=== PATIENT | female | born 1935 | race Caucasian/White ===

== ENCOUNTER 2016-11-22 11:15 | Inpatient (IN) | payer MEDICARE ==
[~2016-11-22] VITALS: Ht 160 cm; Wt 87.3 kg
[2016-11-22 12:37] LABS: ALBUMIN 2.5 g/dL (3.4-5.0); ANION GAP 13.9 mmol/L (8-16); BILIRUBIN - TOTAL 0.39 mg/dL (0.2-1.3); CALCIUM 8.7 mg/dL (8.5-10.1); CARBON DIOXIDE 24.6 mmol/L (21.0-32.0); CREATININE - SERUM 1.7 mg/dL (0.6-1.3); POTASSIUM - SERUM 4.5 mmol/L (3.5-5.1); PROTEIN - SERUM 6.2 g/dL (6.4-8.2)
[2016-11-22 13:07] LABS: BASOPHILS 0.4 % (0.0-2.0); EOSINOPHILS 0.5 % (0-7); HEMATOCRIT 28.5 % (36.0-48.0); HEMOGLOBIN 8.3 g/dL (12-16); IMMATURE GRANULOCYTES 0.3 % (0-5); LYMPHOCYTES 10.1 % (15-50); MCH 26.5 pg (26.0-34.0); MCHC 29.1 g/dL (31.0-37.0); MCV 91.1 fL (80.0-100.0); MEAN PLATELET VOLUME 9.7 fL (7.4-10.4); MONOCYTES 5.7 % (2-11); PLATELET COUNT 173 10x3/uL (130-400); RBC 3.13 10x6/uL (4.00-5.40); WBC 7.4 10x3/uL (4.8-10.8)
[2016-11-22 13:31] LABS: TROPONIN-I 0.2 ng/mL (0.000-0.060)
[2016-11-22 17:12] LABS: APPEARANCE CLEAR (CLEAR); BILIRUBIN NEGATIVE (NEGATIVE); COLOR YELLOW (YELLOW); GLUCOSE NEGATIVE (NEGATIVE); KETONE NEGATIVE (NEGATIVE); LEUKOCYTE ESTERASE NEGATIVE (NEGATIVE); NITRITE NEGATIVE (NEGATIVE); PROTEIN TRACE mg/dL (NEGATIVE); SPECIFIC GRAVITY 1.015 (1.005-1.020); UROBILINOGEN NORMAL (NORMAL)
[2016-11-22 19:24] LABS: CKMB 2.8 U/L (0.0-3.6); CREATINE KINASE 63 UL (21-215)
[2016-11-22 19:27] LABS: TROPONIN-I 0.218 ng/mL (0.000-0.060)
[2016-11-22 19:38] LABS: % SATURATION 5 % (15-55); IRON 27 ug/dl (35-150)
[2016-11-22 19:40] LABS: TOTAL IRON BIND CAPACITY 478 ug/dl (260-445); UNSAT IRON BIND CAPACITY 451 ug/dl (150-375)
[2016-11-23] VITALS (10 sets, daily range): BP systolic 95–130; BP diastolic 44–95; Ht 160 cm; Wt 87.3 kg
[2016-11-23 00:33] LABS: CKMB 2.3 U/L (0.0-3.6); CREATINE KINASE 109 UL (21-215)
[2016-11-23 00:35] LABS: TROPONIN-I 0.203 ng/mL (0.000-0.060)
[2016-11-23 05:43] LABS: BASOPHILS 0.1 % (0.0-2.0); EOSINOPHILS 0 % (0-7); HEMATOCRIT 25.9 % (36.0-48.0); IMMATURE GRANULOCYTES 0.2 % (0-5); LYMPHOCYTES 8.4 % (15-50); MCH 25.6 pg (26.0-34.0); MCHC 27.8 g/dL (31.0-37.0); MCV 92.2 fL (80.0-100.0); MEAN PLATELET VOLUME 10.3 fL (7.4-10.4); MONOCYTES 9.6 % (2-11); NEUTROPHILS 81.7 % (40-80); PLATELET COUNT 166 10x3/uL (130-400); RBC 2.81 10x6/uL (4.00-5.40); WBC 8.1 10x3/uL (4.8-10.8)
[2016-11-23 06:03] LABS: HEMOGLOBIN 7.2 g/dL (12-16)
[2016-11-23 06:33] LABS: CALC OSMOLALITY 299 mosm/kg (275-300); CALCIUM 8.6 mg/dL (8.5-10.1); CARBON DIOXIDE 24.6 mmol/L (21.0-32.0); CHLORIDE - SERUM 108 mmol/L (98-107); CKMB 2.1 U/L (0.0-3.6); CREATINE KINASE 62 UL (21-215); CREATININE - SERUM 1.7 mg/dL (0.6-1.3); GLUCOSE 132 mg/dL (74-106); POTASSIUM - SERUM 4.6 mmol/L (3.5-5.1); SODIUM 143 mmol/L (136-145); UREA NITROGEN 49 mg/dL (7-18); eGFR NON AFRICAN AMERICAN 30 mL/min (90-120)
--- NOTE | 2016-11-23 09:11 | NUR ---
Left foot elevated on pillow with walker boot in place. Foot warm and dry. Antonia Fuentes RN
--- NOTE | 2016-11-23 15:19 | NUR ---
Patient Name: NETTIE MCCARTY Admission Status: ER Accout number: [id number] Admission Date: 11-22-2016 : 1933 Admission Diagnosis: Attending: KYE Current LOS: 1 Anticipated DC Date: 11-25-2016 Planned Disposition: Home Primary Insurance: MEDICARE A & B Discharge Planning Comments: CM MET WITH PATIENT AND DAUGHTER (ANNA) REGARDING D/C NEEDS AND PLANS. PATIENT COULD NOT ANSWER QUESTIONS-DAUGHTER ANSWERED ALL. DAUGHTER STATED SHE AND HER MOTHER LIVES TOGETHER AND THERE ARE NO STEPS OR STAIRS AT THE HOME. PATIENT IS PARTIALLY DEPENDENT FOR HER CARE. HER DAUGHTER GETS WATER READY FOR HER BATH AND HELPS WITH HER MEDICATION. PATIENT HAS A WALKER, HOSPITAL BED, BS COMMODE, OXYGEN, AND PORTABLE OXYGEN AT HOME. PATIENT HAS HOUSE CALLS. PATIENT PCP IS DR. SHELTON AND PHARMACY IS [facility] IN [place]. DAUGHTER DID NOT THINK HER MOTHER WILL NEED HOME HEALTH AT DISCHARGE. CM WILL CONTINUE TO FOLLOW PATIENT WITH D/C NEEDS AND PLANS. PCP DR[facility] IN [phone] ANNA (DAUGHTER) [phone] [employer]room[employer] Grader: Caroline Ware Is the patient Alert and Oriented? Yes 0 * How many steps to enter\exit or inside your home? 0 0 * PCP DR. SHELTON 0 * [facility] [place] 0 * Preadmission Environment Home with Family 0 * ADLs Independent 0 * Equipment Bedside Commode Hospital Bed Oxygen Walker 0 * List name and contact numbers for known caregivers / representatives who currently or will assist patient after discharge: ANNA (DAUGHTER) [phone] 0 * Community resources currently utilized Other 0 * Please name any agencies selected above. HOUSE CALLS 0 * Additional services required to return to the preadmission environment? Yes 0 * Can the patient safely return to the preadmission environment? Yes 0 * Has this patient been hospitalized within the prior 30 days at any hospital? No 0 Grand Total: 0
--- NOTE | 2016-11-23 18:30 | NUR ---
PRBC UNIT 1 INITIATED @ 125 CC/HR VIA PUMP. NO CHANGES IN INITIAL ASSESSMENT. CALL LIGHT IN REACH. WILL CONTINUE WITH PLAN OF CARE.
--- NOTE | 2016-11-23 20:10 | NUR ---
PATIENT RESTING IN BED. NO SIGNS OF DISTRESS NOTED. BLOOD INFUSING TO RIGHT WRIST IV. FAMILY PRESENT. BED LOW. CALL LIGHT IN REACH
--- NOTE | 2016-11-24 04:35 | NUR ---
PT IS ASLEEP IN BED WITH A FAMILY MEMBER ASLEEP IN THE CHAIR. THE BED IS LOW, RAILS UP X'S 2 WITH THE CALL LIGHT AT HAND. THE LIGHTS ARE DIM AND TV IS OFF.
[2016-11-24 06:11] LABS: BASOPHILS 0.2 % (0.0-2.0); EOSINOPHILS 0.6 % (0-7); IMMATURE GRANULOCYTES 0.6 % (0-5); LYMPHOCYTES 7.5 % (15-50); MCH 27.5 pg (26.0-34.0); MCHC 30.8 g/dL (31.0-37.0); MEAN PLATELET VOLUME 11.3 fL (7.4-10.4); MONOCYTES 10.5 % (2-11); NEUTROPHILS 80.6 % (40-80); RDW 16.1 % (11.5-14.5); WBC 8.7 10x3/uL (4.8-10.8)
[2016-11-24 06:15] LABS: HEMATOCRIT 31.8 % (36.0-48.0); HEMOGLOBIN 9.8 g/dL (12-16); MCV 89.1 fL (80.0-100.0); PLATELET COUNT 104 10x3/uL (130-400); RBC 3.57 10x6/uL (4.00-5.40)
--- NOTE | 2016-11-24 07:58 | NUR ---
ROUSES TO TACTILE STIMULATION. RESPONDS TO NAME BUT NOT ANSWERING QUESTIONS. LUNGS ARE CLEAR BILATERALLY, NO COUGH NOTED. SKIN IS INTACT WITHOUT REDNESS EXCEPT SMALL SCABBED AREA ON LEFT LOWER ABDOMEN THAT DAUGHTER REPORTS BURN FROM COFFEE. SL TO RIGHT WRIST AREA INTACT WITHOUT REDNESS. SCD'S IN PLACE TO RIGHT LEG. WALKING BOOT IN PLACE TO LEFT LE. RANJITS NEEDS.
[2016-11-24 08:04] VITALS: BP 109/69
[2016-11-24 08:07] LABS: CALCIUM 7.7 mg/dL (8.5-10.1); CARBON DIOXIDE 22.3 mmol/L (21.0-32.0)
[2016-11-24 08:08] LABS: ANION GAP 13.5 mmol/L (8-16); POTASSIUM - SERUM 4.8 mmol/L (3.5-5.1)
[2016-11-24 10:20] LABS: FOLATE (FOLIC ACID) - SERUM 15.2 ng/mL (>3.0)
[2016-11-24 11:43] VITALS: BP 105/64
[2016-11-24 16:56] VITALS: BP 105/76
--- NOTE | 2016-11-24 18:04 | NUR ---
SITTING UP IN BED ATE ALL OF SUPPER. FAMILY AT BEDSIDE. REQUESTED AND GIVEN 0.1MG BUPRENEX SLOW IVP FOR C/O LEFT FOOT PAIN LEVEL 7. WILL MONITOR.
--- NOTE | 2016-11-24 18:38 | NUR ---
ATE ALMOST ALL OF SUPPER. DISCHARGE INSTRUCTIONS GIVEN BOTH VERBALLY AND WRITTEN. ALL QUESTIONS ANSWERED. PATIENT VERBALIZED UNDERSTANDING OF SAME. NO NEW PRESCRIPTIONS NEEDED. WAITING ON RIDE TO D/C HOME.
[2016-11-24 20:00] VITALS: BP 110/71
--- NOTE | 2016-11-24 23:10 | NUR ---
DR. ARREDONDO NOTIFIED OF CHANGE IN PT STATUS, NEW ORDERS RECIEVED
[2016-11-24 23:15] VITALS: BP 131/68
--- NOTE | 2016-11-24 23:15 | NUR ---
CONSULT CALLED TO DR. KATZ, NEW ORDERS RECIEVED,
--- NOTE | 2016-11-24 23:20 | NUR ---
PT ARRIVED ON UNIT, PT AGONAL BREATHING AT THIS TIME, DR. BALL NOTIFIED OF NEED OF INTUBATION, ETOMIDATE, VERSED, AND SUCCS ORDERED AT THIS TIME, PT INTUBATED @ 2330 WITH @ 7.5 ETT, 21 AT LIP, TAPED AND SECURE, 18FR TORRES CATHETER PLACED AT THIS TIME, 22G RIGHT SHOULDER PIV INTIATED AT THIS TIME, WAITING ON FAMILY TO ARRIVE
[2016-11-24 23:45] VITALS: BP 101/86
[2016-11-25] VITALS (52 sets, daily range): BP systolic 83–135; BP diastolic 40–103
--- NOTE | 2016-11-25 | NUR ---
PT REC'D ON VENT VIA 7.5 ETT TAPED @ 20CM LIPLINE, OGT SECURED TO ETT, PLACEMENT VERIFIED VIA SM AIR BOLUS AUSCULTATED OVER EPIGASTRIM, GOLD COLORED DRAINAGE FROM OGT, SEE FLOWSHEET FOR VENT SETTINGS, CM- SR WITH PAC'S HR 90, PT UNRESPONSIVE AT THIS TIME, RIGHT FOREARM PIV SALINE LOCKED, RIGHT UPPER ARM WITH WEEPING NOTED AND REDDENED AREA, RIGHT UPPER CHEST 22 GAUGE SALINE LOCKED, ABD WITH HERNIA NOTED, BS HYPOACTIVE, TORRES PATENT DRAINING DARK YELLOW URINE, BOOT NOTED TO LEFT LE, BILAT LE'S WITH DRY SKIN NOTED, BILAT SOFT WRIST RESTRAINTS INTACT.
--- NOTE | 2016-11-25 00:30 | NUR ---
FAMILY AT BS, UPDATE GIVEN AND QUESTIONS ANSWERED BY STEPH GARDNER.
--- NOTE | 2016-11-25 01:30 | NUR ---
PT STARTING TO MOVE AROUND IN BED, DOES NOT OPEN EYES TO VERBAL STIMULI, SQUEEZES HANDS AND MOVES RIGHT FOOT TO COMMAND, FAMILY INFORMED STAFF THAT PT IS VERY HARD OF HEARING.
--- NOTE | 2016-11-25 02:00 | NUR ---
PT COUGHING/GAGGING ON ETT, ORAL CARE GIVEN, THICK WHITE SECRETIONS REMOVED FROM MOUTH, PT REACHING FOR ETT DESPITE RESTRAINTS, ATTEMPTED TO CALM PT AT THIS TIME.
--- NOTE | 2016-11-25 02:16 | NUR ---
DIPRIVAN BEGUN TO RIGHT FOREARM, BP ELEVATED AND PT CONTINUES TO MOVE AROUND BED, COUGHING AND GAGGING ON ETT, WILL MONITOR CLOSELY FOR CHANGES.
--- NOTE | 2016-11-25 03:30 | NUR ---
RADIOLOGY AT BEDSIDE FOR AM CXR
--- NOTE | 2016-11-25 04:00 | NUR ---
COMPLETE BATH AND LINEN CHANGE PROVIDED, TOLERATED WELL, REMAINS SEDATED ON DIPRIVAN, WILL CONT TO MONITOR FOR CHANGES.
--- NOTE | 2016-11-25 06:15 | NUR ---
AM MEDS GIVEN, NO VISITORS IN AT THIS TIME.
[2016-11-25 07:01] LABS: BASOPHILS 0.4 % (0.0-2.0); EOSINOPHILS 0.1 % (0-7); HEMATOCRIT 29.8 % (36.0-48.0); HEMOGLOBIN 9.3 g/dL (12-16); IMMATURE GRANULOCYTES 1.4 % (0-5); LYMPHOCYTES 7.2 % (15-50); MCH 27.3 pg (26.0-34.0); MCHC 31.2 g/dL (31.0-37.0); MCV 87.4 fL (80.0-100.0); MEAN PLATELET VOLUME 10.7 fL (7.4-10.4); MONOCYTES 8.7 % (2-11); NEUTROPHILS 82.2 % (40-80); RBC 3.41 10x6/uL (4.00-5.40); WBC 9.8 10x3/uL (4.8-10.8)
[2016-11-25 07:02] LABS: PLATELET COUNT 130 10x3/uL (130-400)
[2016-11-25 07:29] LABS: CALCIUM 7.6 mg/dL (8.5-10.1); CARBON DIOXIDE 22.2 mmol/L (21.0-32.0); CREATININE - SERUM 2.3 mg/dL (0.6-1.3)
[2016-11-25 07:36] LABS: ANION GAP 15.7 mmol/L (8-16); POTASSIUM - SERUM 5.9 mmol/L (3.5-5.1)
--- NOTE | 2016-11-25 09:04 | NUR ---
Nutrition follow-up: Pt now in ICU; intubated, sedated. OGT->LIWS Labs reviewed If pt remains intubated, recommend starting Pulmocare @ 25 ml/hr with gradual increase to goal rate of 40 ml/hr. RDN following.
[2016-11-25 12:26] LABS: ANION GAP 16.3 mmol/L (8-16); CALCIUM 8.1 mg/dL (8.5-10.1); CARBON DIOXIDE 23.5 mmol/L (21.0-32.0); CREATININE - SERUM 2.4 mg/dL (0.6-1.3); POTASSIUM - SERUM 5.8 mmol/L (3.5-5.1)
--- NOTE | 2016-11-25 18:31 | NUR ---
SPOKE WITH ALL TEN OF PT'S LIVING CHILDREN ABOUT PLAN OF CARE. WILL DISCUSS OVERNIGHT AND SPEAK WITH IN AM.
--- NOTE | 2016-11-25 21:37 | NUR ---
FAMILY AT BEDSIDE, UPDATE GIVEN AND QUESTIONS ANSWERED.
--- NOTE | 2016-11-25 23:01 | NUR ---
REASSESSMENT COMPLETE, SEE FLOWSHEET FOR ALL FINDINGS. COMPLETE BATH AND LINEN CHANGE COMPLETE. PT REPOSITIONED WITH BONY PROMINENCES BRIDGED. VSS. ORAL CARE ADM. ROOM VISIBLE FROM NURSES STATION. CPOC.
[2016-11-26] VITALS (95 sets, daily range): BP systolic 80–132; BP diastolic 42–82
--- NOTE | 2016-11-26 03:00 | NUR ---
REASSESSMENT COMPLETE, SEE FLOWSHEET FOR ALL FINDINGS. PT REPOSITIONED WITH BONY PROMINENCES BRIDGED. ORAL CARE ADM. DOPAMINE GTT REMAINS INFUSING. CPOC.
--- NOTE | 2016-11-26 05:13 | NUR ---
PT REPOSITIONED WITH BONY PROMINENCES BRIDGED. ORAL CARE ADM. PARTIAL LINEN CHANGE COMPLETE. VSS, DOPAMINE GTT INFUSING. CPOC.
[2016-11-26 08:31] LABS: ANION GAP 16.4 mmol/L (8-16); CALCIUM 7.6 mg/dL (8.5-10.1); CARBON DIOXIDE 23.3 mmol/L (21.0-32.0); CREATININE - SERUM 2.1 mg/dL (0.6-1.3)
[2016-11-26 08:32] LABS: BASOPHILS 0.1 % (0.0-2.0); EOSINOPHILS 0.2 % (0-7); HEMATOCRIT 34.4 % (36.0-48.0); HEMOGLOBIN 10.7 g/dL (12-16); IMMATURE GRANULOCYTES 0.3 % (0-5); LYMPHOCYTES 5.2 % (15-50); MCH 27.3 pg (26.0-34.0); MCHC 31.1 g/dL (31.0-37.0); MCV 87.8 fL (80.0-100.0); MEAN PLATELET VOLUME 9.8 fL (7.4-10.4); MONOCYTES 5.6 % (2-11); NEUTROPHILS 88.6 % (40-80); PLATELET COUNT 150 10x3/uL (130-400); RBC 3.92 10x6/uL (4.00-5.40); RDW 16.6 % (11.5-14.5); WBC 10.2 10x3/uL (4.8-10.8)
[2016-11-26 08:32] LABS: POTASSIUM - SERUM 3.7 mmol/L (3.5-5.1)
--- NOTE | 2016-11-26 14:55 | NUR ---
BED BATH AND LINEN CHANGE COMPLETE. HAIR WASHED. ORAL CARE PROVIDED.
--- NOTE | 2016-11-26 19:00 | NUR ---
PT SEDATED, OPENS EYES FOLLOWS SOME SIMPLE COMMANDS. INTUBATED, SPO2 95 @ 30% FIO2. LUNG SOUNDS CRACKLES/DIMINISHED. ORAL CARE ADM. PERIPHERAL PULSES WEAK. DOPAMINE GTT INFUSING FOR HYPOTENSION. PT REPOSITIONED WITH BONY PROMINENCES BRIDGED. BOWEL SOUNDS ACTIVE IN ALL QUADRANTS. NO S/S OF PAIN OR ACUTE DISTRESS. BILATERAL WRIST RESTRAINTS IN PLACE. ROOM VISIBLE FROM NURSES STATION. CPOC.
--- NOTE | 2016-11-26 21:10 | NUR ---
FAMILY AT BEDSIDE, QUESTIONS ANSWERED AND UPDATE GIVEN. VSS, NO S/S OF PAIN OR ACUTE DISTRESS NOTED. PT REPOSITIONED. ROOM VISIBLE FROM NURSES STATION. CPOC.
--- NOTE | 2016-11-26 23:00 | NUR ---
REASSESSMENT COMPLETE, SEE FLOWSHEET FOR ALL FINDINGS. NO ACUTE CHANGES NOTED AT THIS TIME. PT REPOSITIONED WITH BONY PROMINENCES BRIDGED. ORAL CARE ADM. NO S/S OF PAIN. PARTIAL LINEN CHANGE COMPLETE. ROOM VISIBLE FROM NURSES STATION. CPOC.
[2016-11-27] VITALS (89 sets, daily range): BP systolic 74–132; BP diastolic 42–111
--- NOTE | 2016-11-27 03:10 | NUR ---
REASSESSMENT COMPLETE, SEE FLOWSHEET FOR ALL FINDINGS. NO ACUTE CHANGES NOTED AT THIS TIME. PT REPOSITIONED WITH BONY PROMINENCES BRIDGED. ORAL CARE ADM. NO S/S OF PAIN. BILATERAL WRIST RESTRAINTS IN USE. ROOM VISIBLE FROM NURSES STATION. CPOC.
[2016-11-27 05:16] LABS: BASOPHILS 0.1 % (0.0-2.0); EOSINOPHILS 1.1 % (0-7); HEMATOCRIT 32.7 % (36.0-48.0); HEMOGLOBIN 10.1 g/dL (12-16); IMMATURE GRANULOCYTES 0.1 % (0-5); MCH 27.2 pg (26.0-34.0); MCHC 30.9 g/dL (31.0-37.0); MCV 88.1 fL (80.0-100.0); MONOCYTES 6.9 % (2-11); NEUTROPHILS 84.8 % (40-80); PLATELET COUNT 157 10x3/uL (130-400); RBC 3.71 10x6/uL (4.00-5.40); RDW 16.7 % (11.5-14.5); WBC 9.5 10x3/uL (4.8-10.8)
[2016-11-27 05:51] LABS: ANION GAP 14.6 mmol/L (8-16); CALCIUM 7.4 mg/dL (8.5-10.1); CARBON DIOXIDE 23.2 mmol/L (21.0-32.0); CREATININE - SERUM 2.1 mg/dL (0.6-1.3)
[2016-11-27 05:54] LABS: POTASSIUM - SERUM 2.8 mmol/L (3.5-5.1)
--- NOTE | 2016-11-27 06:13 | NUR ---
REC'D CALLBACK FROM [facility] REGARDING CRITICAL LAB RESULTS, NEW ORDERS REC'D.
--- NOTE | 2016-11-27 08:00 | NUR ---
SPOKE WITH DR. LOU ABOUT REMOVING LEFT FOOT BOOT. STATES IT IS OK TO UNSTRAP BOOT TO ASSESS FOOT BUT TO NOT REMOVE BOOT FROM FOOT ENTIRELY.
--- NOTE | 2016-11-27 14:00 | NUR ---
EXTUBATED TO 2L NC PER ORDER BY R.T.
--- NOTE | 2016-11-27 19:30 | NUR ---
REC'D PT SITTING UP IN BED O2 @ 2LITERS VIA NC, PT VERY HARD OF HEARING, SPEECH GARBLED, PT APPEARS TO BE ABLE TO READ LIPS AND CAN READ NOTES WRITTEN TO HER, RIGHT UPPER CHEST PIV WITH NS @ 50CC/HR AND DOPAMINE @ 8MCG/KG/MIN, RIGHT FOREARM PIV SALINE LOCKED, RIGHT A/C WITH REDDENED AREA, SCAB/SORES NOTED, CM-UCAF @ 105, ABD ROUND SOFT, BS X 4, TORRES PATENT DRAINING JASPAL COLORED URINE, LEFT LOWER EXT ANKLE FRACTURE IN BOOT, SKIN ASSESSED, CDI, BOOT REMAINED ON DURING ASSESSMENT, SCD TO RIGHT LEG AND ON, LEFT LOWER EXT ELEVATED ON PILLOW, SR UP X 2, VISIBLE TO NURSES STATION.
--- NOTE | 2016-11-27 21:15 | NUR ---
FAMILY AT BS FOR VISITING, PT MOTIONING TO LEFT LEG , SAYS PILLOW, PILLOW ADJUSTED AND PLACED UNDER LEFT LEG, STATES "BETTER", UPDATE PROVIDED TO FAMILY, FAMILY WETTING SWABS AND MOISTENING PT'S MOUTH, PO MEDS HELD UNTIL SWALLOW EVAL COMPLETED TO ASSESS PT'S ABILITY TO SWALLOW.
--- NOTE | 2016-11-27 23:05 | NUR ---
REASSESSMENT COMPLETED, PT DIFFICULT TO COMMUNICATE DUE TO HARD OF HEARING, PT REPOSITIONED UP IN BED AND ONTO LEFT SIDE SUPPORTED WITH PILLOW, PILLOWS UNDER LEFT ARM AND LEFT LEG FOR COMFORT, PT ASKING ABOUT GLASSES, EXPLAINED TO PT FAMILY HAD GLASSES, WILL MONITOR FOR CHANGES.
[2016-11-28] VITALS (94 sets, daily range): BP systolic 57–125; BP diastolic 26–98
--- NOTE | 2016-11-28 00:20 | NUR ---
ROUTINE MEDS GIVEN, ATTEMPTED A FEW ICE CHIPS WITH PT, TOLERATED WELL, WILL CONT WITH ORAL SWABS MORE THAN ICE UNITL SWALLOW EVAL COMPLETED.
--- NOTE | 2016-11-28 02:00 | NUR ---
PT RESTING EYES CLOSED, RESP EVEN AND UNLABORED, DOPAMINE CONTINUES @ 7.5MCG/KG/MIN, WILL CONT TO MONITOR FOR CHANGES.
--- NOTE | 2016-11-28 03:45 | NUR ---
RADIOLOGY @ BS FOR AM CXR, PT POSITIONED FOR COMFORT
--- NOTE | 2016-11-28 05:30 | NUR ---
ORAL CARE PROVIDED WITH MOISTENED SWABS, PT REPOSITIONED UP IN BED.
--- NOTE | 2016-11-28 06:20 | NUR ---
RIGHT FOREARM PIV WITH DOPAMINE INFUSING LEAKING AT SITE, DOPAMINE MOVED TO RIGHT UPPER CHEST, STEEL SASH ERECTOR AND PHARMACY NOTIFIED.
--- NOTE | 2016-11-28 07:00 | NUR ---
PHENTOLAMINE 10MG GIVEN SUBCUE TO RIGHT WRIST AND FOREARM, PT TOLERATED WELL.
[2016-11-28 09:55] LABS: ANION GAP 11.7 mmol/L (8-16); CALCIUM 7.5 mg/dL (8.5-10.1); CARBON DIOXIDE 25.3 mmol/L (21.0-32.0); CREATININE - SERUM 2.2 mg/dL (0.6-1.3)
--- NOTE | 2016-11-28 10:19 | NUR ---
Nutrition follow-up: Pt extubated. Diet advanced to puree with thin liquids Wt: 168# RDN will order butter pecan Nepro BID. RDN following.
--- NOTE | 2016-11-28 14:16 | EC ---
PATIENT:NETTIE MCCARTY DATE OF SERVICE: 11/22/16 SEX: F MEDICAL RECORD: [id number] DATE OF : 31 LOCATION:[facility] D230 AGE OF PATIENT: 81 ADMISSION DATE: 11/22/16 REFERRING PHYSICIAN: INTERPRETING PHYSICIAN: BARB PERSON MD ECHOCARDIOGRAM REPORT ECHO CHARGES 4 ECHO COMPLETE CLINICAL DIAGNOSIS: DYSPNEA ECHOCARDIOGRAPHIC MEASUREMENTS (adult normal given) AC root (d.<3.7cm) 3.0 LV Septum d (<1.2 cm> 1.2 Valve Excursion 1.6 LV Septum (systole) 1.7 Left Atria (s.<4.0cm> 5.3 LVPW d(<1.2cm) 1.3 RV (d.<2.3cm) 4.3 LVPW (sytole) 1.9 LV diastole(<5.6CM) 4.5 MV E-F(>70mm/sec) LV systole 2.6 LVOT Diameter 1.8 MV exc.(>10mm) Est.ejection fraction (50-75%) Pericardial Effusion N DOPPLER: LVIT A E 120.0 LA RVSP 65.0 LVOT 97.0 AOP1/2T Asc. Ao 187 RVOT 53.0 RA PA 96.0 AV Gradient Peak 14.0 AV Mean 6.6 AV Area 1.4 MV Gradient Peak 12.0 MV Mean 2.3 MV Area COMMENTS: Sales Promotion Director: Blanca TAVARESOE Sales Associate Fishing:1 Dr. Person TAPE# PACS DATE OF SERVICE: 11/23/2016 Echocardiogram FINDINGS: 1. Left ventricular chamber size is within normal limits. Left ventricular systolic function is mildly reduced, overall ejection fraction estimated at 40%. 2. Left atrium, right atrium and right ventricular chamber sizes are moderately dilated. Left atrium measures 5.3 cm. 3. Valvular structures have normal structure and motion. ECHOCARDIOGRAM REPORT [id number] NETTIE MCCARTY 4. Doppler interrogation reveals moderate to severe mitral regurgitation, severe tricuspid regurgitation, no other valvular insufficiency or stenosis. Pulmonary systolic pressure is elevated and estimated at 65 mmHg. 5. No evidence of pericardial effusion or left ventricular thrombus. TRANSINT:[id number] Voice Confirmation ID: [id number] DOCUMENT ID: [id number] BARB PERSON MD at 1416 CC: [id number] DICTATION DATE: 11/23/16 1307 CLIENT FINANCE ANALYST: 11/23/16 1830 ADM IN [facility] [address] [id number]
--- NOTE | 2016-11-28 14:23 | NUR ---
0800 AM ASSESMENT IS COMPLETE SEE FLOW SHEET FOR FINDINGS.. PT IS AWAKE AND WITHOUT C/O AT THIS TIME.. REPORT RECIEVED AND NIGHT NURSE IS COMPLETEING INJECTION OF REGITINE INTO RIGHT HAND WHERE THE PIV HAS INFILTRATED WITH DOPAMINE DRIP.. HAND AND ARM IS RED WITH SWELLING.. PIV HAS BEEN RESITED INTO RIGHT SHOULDER AREA AND DOPAMINE IS INFUSING INTO THE SITE ALONG WITH NS.. 0820 DR KELLY IS IN TO SEE PT.. UPDATER IS GIVEN.. [place] 0830 WINNIE BRIONES RN IN TO SEE PT AND INSERT PICC LINE.. 0850 PICC PLACED IN UPPER LEFT ARM AND X RAY HERE TO VERIFY PLACEMENT.. 0900 FAMILY IN TO SEE PT.. UPDATE GIEN.. 0920 SHAHEED RAMIREZ IN TO DO SWALLOW EVEL PER ORDER.. 0945 SWALLOW EVEL COMPLETE AND FAMILY GONE FROM BEDSIDE. 1030 COMPLETE BATH AND LINEN CHAMNGE DONE AT THIS TIME.. PT C/O PAIN IN LEFT LOWER LEG AFTER TURNING .. CAST IN PLACE AND LEG SUPPORTED ON PILLOWS.. 1100 DR RIVERA IN TO SEE PT.. UPDATE GIVEN AND SKIN AREAS SHOWN TO HER 1200 PUREED DIET SERVED AND FAMILY AT THE BEDSIDE ASSISTING PT WITH MEAL.. 1300 FAMILY GONE FROM THE BEDSIDE ... 1330 MEDS GIVEN.. 1400 PT IS SLEEPING AT THIS TIME..
--- NOTE | 2016-11-28 18:18 | NUR ---
1500 FAMILY AT THE BEDSIDE.. 1600 MEDS GIVEN.. I AND O DONE.. 1700 SLEEPING 1800 FAMILY IN TO SEE PT.. FEEDING PT EVENING DIET TRAY..
--- NOTE | 2016-11-28 19:40 | NUR ---
REPORT REC'D AND CARE ASSUMED, REC'D PT ON O2 @ 2LITERS VIA NC, AWAKE AND ALERT, PT EXTREMELY HARD OF HEARING, COMMUNICATES BY READING LIPS, RIGHT UPPER CHEST PIV SALINE LOCKED, RIGHT EDEMATOUS, RIGHT HAND AND FOREARM WITH RED DISCOLORATION, RIGHT ARM WEEPING SEROSANGUINOUS FLUID, CM-CAF, LEFT UPPER ARM PICC LINE DRSG CDI WITH NS @ 50CC/HR AND DOPAMINE @ 7.5MCG/KG/MIN, THIRD LUMEN SALINE LOCKED, LEFT LOWER EXTREME IN BOOT, BOOT OPENED TO EXAMINE SKIN, SKIN CDI, ADJUSTED PILLOW UNDERNEATH BOOT FOR PT COMFORT, TORRES PATENT DRAINING JASPAL COLORED URINE, PT DENIES PAIN OR NEEDS, SR UP X 2, VISIBLE TO NURSES STATION.
--- NOTE | 2016-11-28 21:00 | NUR ---
FAMILY AT , UPDATE GIVEN AND QUESTIONS ANSWERED, PT REPOSITIONED ONTO RIGHT SIDE PER REQUEST, PT COMPLAINS OF "MY LEG IS IN A HOLE", PILLOW ADJUSTED UNDER FRACTURED LEG, PT STATES "THAT IS SOMEWHAT BETTER".
--- NOTE | 2016-11-28 21:45 | NUR ---
EVENING MEDS GIVEN, WITH SIPS OF WATER, PT TOLERATED WELL, PT REQUESTING ICE CREAM, PT UNABLE TO HOLD CUP OF ICE CREAM, ASSISTED PT WITH ICE CREAM, PT DOES NOT LIKE THE TASTE OF THE WATER, KRISTY COLA PROVIDED.
--- NOTE | 2016-11-28 23:30 | NUR ---
PT RESTING EYES CLOSED, RESP EVEN AND UNLABORED, CM-CAF, NO CHANGES FROM PREVIOUS ASSESSMENT.
[2016-11-29] VITALS (91 sets, daily range): BP systolic 84–127; BP diastolic 44–93
--- NOTE | 2016-11-29 | NUR ---
PT CALLING OUT FROM ROOM, PT REPOSITIONED IN BED, BLANKET PROVIDED FOR COMPLAINTS OF BEING COLD, BP STABLE, WILL ATTEMPT TO WEAN DOPAMINE TOLERATED.
--- NOTE | 2016-11-29 02:00 | NUR ---
NO CHANGES IN STATUS AT THIS TIME
--- NOTE | 2016-11-29 04:00 | NUR ---
COMPLETE BATH AND LINEN CHANGE GIVEN, HAIR COMBED, PT COMPLAINS OF BACK ITCHING, LOTION APPLIED FOR PT COMFORT, PT REPOSITIONED UP IN BED, EXT'S ELEVATED ON PILLOWS.
[2016-11-29 06:05] LABS: BASOPHILS 0.1 % (0.0-2.0); EOSINOPHILS 2.4 % (0-7); HEMATOCRIT 35.1 % (36.0-48.0); HEMOGLOBIN 10.4 g/dL (12-16); IMMATURE GRANULOCYTES 0.4 % (0-5); LYMPHOCYTES 10.9 % (15-50); MCHC 29.6 g/dL (31.0-37.0); MCV 91.2 fL (80.0-100.0); MEAN PLATELET VOLUME 9.6 fL (7.4-10.4); MONOCYTES 6.3 % (2-11); NEUTROPHILS 79.9 % (40-80); PLATELET COUNT 184 10x3/uL (130-400); RBC 3.85 10x6/uL (4.00-5.40); WBC 8.5 10x3/uL (4.8-10.8)
--- NOTE | 2016-11-29 06:30 | NUR ---
AM MEDS GIVEN WITH SIPS OF WATER, VSS.
[2016-11-29 06:34] LABS: ANION GAP 12.7 mmol/L (8-16); CARBON DIOXIDE 24.3 mmol/L (21.0-32.0); CREATININE - SERUM 2.3 mg/dL (0.6-1.3)
[2016-11-29 06:44] LABS: MAGNESIUM - SERUM 2.9 mg/dL (1.8-2.4)
--- NOTE | 2016-11-29 12:00 | NUR ---
0800 AM ASSESMENT IS COMLETE SEE FLOW SHEET FOR FINDINGS.. PT IS AWAKE AND ALERT.. PICC LINE IV NS INFUSING AT 50CC/HR.. FLUID OFF AT THIS TIME PER V/O DR DUEÑAS.. DOPAMINE CONTINUES TO INFUSE FOR BP// 0900 FAMILY IN TO SEE PT AND FAMILY IS FEEDING PT PUREED DIET... PT IS TOLERATING WELL 1000 FAMILY GONE FROM BEDSIDE.. REPOSITIONED AND MEDS HAVE BEEN GIVEN.. 1100 SLEEPING. 1200 FAMILY IN TO SEE PT AND THEY ARE ASSISTING HER WITH LUNCH..
--- NOTE | 2016-11-29 13:32 | NUR ---
NURSING RECEIVED T/C FROM [facility] STATING THAT PATIENT IS CURRENT WITH [employer] [facility]. THEY STATED THEY WOULD PUT HER ON HOLD AND RESUME AT DISCHARGE IF NEEDED. CM TO FOLLOW.
--- NOTE | 2016-11-29 18:21 | NUR ---
1400 PTIS SLEEPING AT THIS TIME.. 1500 FAMILY AT THE BEDSIDE.. UPDATE GIVEN.. 1600 PT IS REPOSITIONED AND LEFT LEG CAST REPOSITIONED.. 1700 DIET SERVED AND PT ASSISTED WITH MEAL.. 1800 FAMILY IN TO SEE PT AND TAKING OVER THE FEEDING OF THE PT..
--- NOTE | 2016-11-29 19:40 | NUR ---
REC'D PT SITTING UP IN BED WATCHING TV, PT WITH O2 PULLED OFF, O2 SAT 95%, WILL MONITOR, LEFT ARM PICC LINE WITH DOPAMINE INFUSING @ 6.2MCG/KG/MIN, BP STABLE WILL WEAN GTT TOLERATED, ABD SOFT BS ACTIVE, DINNER TRAY AT BS, PT AT 15%, TORRES PATENT DRAINING YELLOW URINE, LEFT LOWER EXT IN FRACTURE BOOT, BOOT OPENED AND SKIN EXAMINED FOR BREAKDOWN, SKIN CDI, PT REQUESTING TO TAKE OFF, PT HARD OF HEARING, COMMUNICATES BY READIING LIPS OR READING NOTES, EXPLAINED TO PT BOOT MUST REMAIN ON, NODS HEAD IN UNDERSTANDING, SR UP X 2, CALL LIGHT IN REACH.
--- NOTE | 2016-11-29 21:10 | NUR ---
FAMILY AT BS UPDATE GIVEN AND QUESTIONS ANSWERED, PT PROVIDED MANISH HALE ON REQUEST.
--- NOTE | 2016-11-29 21:30 | NUR ---
EVENING MEDS GIVEN WITHOUT DIFFICULTY
--- NOTE | 2016-11-29 23:15 | NUR ---
PT COMPLAINS OF LEFT BOOT SLIPPING, APPEARS TO BE IN CORRECT POSITION, ELEVATED ON PILLOW, REASSESSMENT COMPLETED, PT REPOSITIONED WITH PILLOWS AND BED, DENIES NEEDS, WEANING DOPAMINE TOLERATED.
[2016-11-30] VITALS (92 sets, daily range): BP systolic 67–114; BP diastolic 34–89
--- NOTE | 2016-11-30 01:00 | NUR ---
PT RESTING QUIETLY WATCHING TV, DENIES PAIN OR NEEDS.
--- NOTE | 2016-11-30 03:00 | NUR ---
PT REPOSITIONED UP IN BED FOR COMFORT, VSS, CONTINUING TO WEAN DOPAMINE
--- NOTE | 2016-11-30 04:00 | NUR ---
UNABLE TO DRAW FROM PICC LINE, LAB NOTIFIED.
[2016-11-30 06:10] LABS: BASOPHILS 0.3 % (0.0-2.0); HEMATOCRIT 35.7 % (36.0-48.0); HEMOGLOBIN 10.7 g/dL (12-16); IMMATURE GRANULOCYTES 0.4 % (0-5); LYMPHOCYTES 12.5 % (15-50); MCH 27.3 pg (26.0-34.0); MCV 91.1 fL (80.0-100.0); MEAN PLATELET VOLUME 9.3 fL (7.4-10.4); MONOCYTES 7.4 % (2-11); NEUTROPHILS 76.4 % (40-80); PLATELET COUNT 166 10x3/uL (130-400); RBC 3.92 10x6/uL (4.00-5.40); RDW 16.9 % (11.5-14.5); WBC 7.3 10x3/uL (4.8-10.8)
--- NOTE | 2016-11-30 06:35 | NUR ---
AM MEDS GIVEN WITH SIPS OF WATER, NO VISITORS IN AT THIS TIME
[2016-11-30 06:37] LABS: ANION GAP 12.3 mmol/L (8-16); CALCIUM 8.2 mg/dL (8.5-10.1); CARBON DIOXIDE 25.8 mmol/L (21.0-32.0); CREATININE - SERUM 2.4 mg/dL (0.6-1.3); PHOSPHOROUS 3.8 mg/dL (2.5-4.9); POTASSIUM - SERUM 4.1 mmol/L (3.5-5.1)
[2016-11-30 06:38] LABS: MAGNESIUM - SERUM 1.9 mg/dL (1.8-2.4)
--- NOTE | 2016-11-30 07:30 | NUR ---
SHIFT ASSESSMENT VIA FLOWSHEET, SEE FOR DETAILS.
--- NOTE | 2016-11-30 09:59 | NUR ---
Nutritition follow-up: Diet: pureed with thin liquids Butter Pecan Nepro with meals PO intake ~25-50% of some meals; pt needs assistance with meals Labs reviewed Wt: 190# RDN following.
--- NOTE | 2016-11-30 11:15 | NUR ---
REASSESSMENT VIA FLOWSHEET, SEE FOR DETAILS.
--- NOTE | 2016-11-30 15:15 | NUR ---
DR LO MAKING ROUNDS IN UNIT, DISCUSSED PT CONTINUED HYPOTENSION AND NEW ORDERS RECEIVED.
--- NOTE | 2016-11-30 16:30 | NUR ---
BED BATH PROVIDED AND TORRES CARE COMPLETED PER PROTOCOL.
--- NOTE | 2016-11-30 18:15 | NUR ---
CEO NA RENAL PHYSICIAN PAGED VIA ANSWERING SERVICE.
--- NOTE | 2016-11-30 18:35 | NUR ---
SPOKE WITH DR KELLY VIA PHONE, NEW ORDERS RECEIVED.
--- NOTE | 2016-11-30 19:12 | NUR ---
REPORT RECIEVED. ASSESSMENT COMPLETE PER FLOW SHEET. REFER FOR FINDINGS. VSS WILL CONTNIUE TO MONITOR.
--- NOTE | 2016-11-30 19:50 | NUR ---
EKG ADM, HR 46 SINUS MANDI. BP 91/52 NO NEW CHNA GES
--- NOTE | 2016-11-30 21:14 | NUR ---
FAMILY AT BEDSIDE. NO NEW CHANGES UPDATE GIVEN WILL CONTINUE TO MONITOR.
--- NOTE | 2016-11-30 23:17 | NUR ---
REASSESSMENT COMPETE PER FLOW SHEET. VSS. NO NEW CHANGES AT THIS TIME. WILL CONTINUE TO MONITOR.
[2016-12-01] VITALS (90 sets, daily range): BP systolic 73–126; BP diastolic 34–92
--- NOTE | 2016-12-01 01:10 | NUR ---
GIVEN ICE WATER PER REQUEST DENIES FURTHER NEEDS.
--- NOTE | 2016-12-01 03:04 | NUR ---
REASSESSMENT COMPELTE PER FLOW SHEET. VSS. NO NEW CHANGE AT THIS TIME.
[2016-12-01 05:01] LABS: BASOPHILS 0 % (0.0-2.0); EOSINOPHILS 0.2 % (0-7); HEMATOCRIT 34.9 % (36.0-48.0); HEMOGLOBIN 10.5 g/dL (12-16); IMMATURE GRANULOCYTES 0.3 % (0-5); LYMPHOCYTES 6.4 % (15-50); MCH 27.2 pg (26.0-34.0); MCHC 30.1 g/dL (31.0-37.0); MCV 90.4 fL (80.0-100.0); MEAN PLATELET VOLUME 10.4 fL (7.4-10.4); MONOCYTES 0.9 % (2-11); NEUTROPHILS 92.2 % (40-80); PLATELET COUNT 162 10x3/uL (130-400); RBC 3.86 10x6/uL (4.00-5.40); WBC 6.6 10x3/uL (4.8-10.8)
--- NOTE | 2016-12-01 05:05 | NUR ---
COMPLETE BB LINEN CHANGE ADM. VSS NO NEW CHANGES WILL CONTINUE TO MONITOR.
[2016-12-01 05:32] LABS: ANION GAP 13.8 mmol/L (8-16); CALCIUM 8.2 mg/dL (8.5-10.1); CARBON DIOXIDE 23.6 mmol/L (21.0-32.0); CREATININE - SERUM 2.5 mg/dL (0.6-1.3); MAGNESIUM - SERUM 1.8 mg/dL (1.8-2.4); PHOSPHOROUS 3.9 mg/dL (2.5-4.9); POTASSIUM - SERUM 4.4 mmol/L (3.5-5.1)
--- NOTE | 2016-12-01 07:30 | NUR ---
SHIFT ASSESSMENT VIA FLOWSHEET, SEE FOR DETAILS.
--- NOTE | 2016-12-01 09:10 | NUR ---
FAMILY AT BEDSIDE, UPDATE PROVIDED.
--- NOTE | 2016-12-01 11:15 | NUR ---
REASSESSMENT VIA FLOWSHEET, SEE FOR DETAILS.
--- NOTE | 2016-12-01 12:00 | NUR ---
PT FAMILY AT BEDSIDE, UPDATE PROVIDED BY DR RIVERA AND MYSELF.
--- NOTE | 2016-12-01 12:25 | NUR ---
SPOKE WITH DR DRAPER VIA PHONE REGARDING PLAN OF CARE.
--- NOTE | 2016-12-01 15:15 | NUR ---
REASSESSMENT VIA FLOWSHEET, SEE FOR DETAILS.
--- NOTE | 2016-12-01 16:28 | NUR ---
LEFT MESSAGE ON DR DRAPER'S VOICEMAIL R/T PT XRAY RESULTS.
--- NOTE | 2016-12-01 19:37 | NUR ---
REPORT RECIEVED. ASSESSMENT COMPELTE EPR FLOW SHET. VSS. NO NEW CHANGES AT THIS TIME. REPOSITIONED IN BED. WILL CONTINUE TO MONITOR.
--- NOTE | 2016-12-01 21:21 | NUR ---
FAMILY AT BEDSIDE. GIVEN UPDATE NO NEW CHANGES.
--- NOTE | 2016-12-01 23:21 | NUR ---
REASSESSMENT COMPLETE PER FLOW SHEET. VSS NO NEW CHNAGES AT THIS TIME. WILL CONTINUE TO MONITOR.
[2016-12-02] VITALS (78 sets, daily range): BP systolic 73–124; BP diastolic 51–91
--- NOTE | 2016-12-02 01:12 | NUR ---
REPOSITIOEND UP IN BED GIVEN ICE WATER PER REQUEST DENIES FURTHER NEEDS
--- NOTE | 2016-12-02 03:04 | NUR ---
REASSESSMENT COMPLETE PER FLOW SHEET. VSS NO NEW CHANGES WILL CONTINUE TO MONITOR.
[2016-12-02 04:55] LABS: BASOPHILS 0 % (0.0-2.0); EOSINOPHILS 0 % (0-7); HEMATOCRIT 32.8 % (36.0-48.0); IMMATURE GRANULOCYTES 0.7 % (0-5); LYMPHOCYTES 7.1 % (15-50); MCH 27.2 pg (26.0-34.0); MCHC 30.5 g/dL (31.0-37.0); MCV 89.1 fL (80.0-100.0); MONOCYTES 2.8 % (2-11); NEUTROPHILS 89.4 % (40-80); PLATELET COUNT 192 10x3/uL (130-400); RBC 3.68 10x6/uL (4.00-5.40); WBC 8.1 10x3/uL (4.8-10.8)
[2016-12-02 05:12] LABS: ALBUMIN 1.9 g/dL (3.4-5.0); ANION GAP 14.5 mmol/L (8-16); CALCIUM 8.3 mg/dL (8.5-10.1); CREATININE - SERUM 2.7 mg/dL (0.6-1.3); PHOSPHOROUS 4.8 mg/dL (2.5-4.9); POTASSIUM - SERUM 4.5 mmol/L (3.5-5.1)
--- NOTE | 2016-12-02 07:00 | NUR ---
Patient awake, alert. Patients daughter in room. BP cuff not on patient. BP cuff replaced and put on patient. Dopamine and Dobutamine infusing. Left leg brace in place and elevated on pillow. Right leg elevated on pillow. See shift assessment flowsheet for all findings.
--- NOTE | 2016-12-02 09:25 | NUR ---
Patient had BM, complete linen change performed. Patient tolerated well. bilateral heels elevated. Patients family allowed in for 0900 visitation.
--- NOTE | 2016-12-02 09:54 | NUR ---
Nutrition follow-up: Diet: Regular puree with thin liquids Butter Pecan with meals PO intake ~25% of meals -> continues to be poor; family helps pt with meals Labs reviewed Wt: 197# +BM Will continue to provide food choices with selective menus and honor food preferences within diet restrictions. RDN following.
--- NOTE | 2016-12-02 11:00 | NUR ---
around to see patient. POC discussed.
--- NOTE | 2016-12-02 12:36 | NUR ---
Patients daughter in room assisting patient with lunch tray. BP remains stable as Dopamine is weaned.
--- NOTE | 2016-12-02 14:15 | NUR ---
Patient sleeping at this time.
--- NOTE | 2016-12-02 15:30 | NUR ---
Patient had another BM. Cleaned up, barrier cream applied. Pressure ulcer remains open to air. Instructed patient to inform me AMANDA she realizes shes had a BM.
--- NOTE | 2016-12-02 16:30 | NUR ---
through, POC discussed. Patients family members in room to discuss POc with . Pt denies needs. VSS.
--- NOTE | 2016-12-02 17:19 | NUR ---
Patient resting, daughter in room at bedside. Dinner tray given, daughter will assist.
--- NOTE | 2016-12-02 19:30 | NUR ---
PT CONFUSED, FOLLOWS SIMPLE COMMANDS. SPEECH GARBLED. PT REPOSITIONED WITH BONY PROMINENCES BRIDGED. RESPIRATIONS SHALLOW, LUNG SOUNDS CRACKLES. COUGH/DB WITH WEAK EFFORT. FRESH WATER TO BEDSIDE. PARTIAL LINEN CHANGE COMPLETE. VOICES NO FURTHER NEEDS AT THIS TIME. CALL LIGHT WITHIN PT REACH. ROOM VISIBLE FROM NURSES STATION. CPOC.
--- NOTE | 2016-12-02 21:30 | NUR ---
FAMILY AT BEDSIDE, POC DISCUSSED. VSS, NO S/S OF PAIN OR ACUTE DISTRESS AT THIS TIME. PT REPOSITIONED FOR COMFORT. CALL LIGHT WITHIN PT REACH. ROOM VISIBLE FROM NURSES STATION. CPOC.
[2016-12-03] VITALS (17 sets, daily range): BP systolic 73–120; BP diastolic 47–98
--- NOTE | 2016-12-03 01:40 | NUR ---
COMPLETE BATH AND TOTAL LINEN CHANGE. PT REPOSITIONED WITH BONY PROMINENCES BRIDGED. VSS, NO S/S OF ACUTE DISTRESS AT THIS TIME. PICC LINE DSG CHANGED. VOICES NO FURTHER NEEDS AT THIS TIME. CALL LIGHT WITHIN PT REACH. CPOC.
--- NOTE | 2016-12-03 03:33 | NUR ---
REASSESSMENT COMPLETE, SEE FLOWSHEET FOR ALL FINDINGS. NO ACUTE CHANGES AT THIS TIME. PT REMAINS CONFUSED. PT REPOSITIONED FOR COMFORT. PARTIAL LINEN CHANGE. VOICES NO FURTHER NEEDS AT THIS TIME. CALL LIGHT WITHIN PT REACH. ROOM VISIBLE FROM NURSES STATION. CPOC.
[2016-12-03 04:39] LABS: BASOPHILS 0 % (0.0-2.0); EOSINOPHILS 0.3 % (0-7); HEMATOCRIT 29.4 % (36.0-48.0); HEMOGLOBIN 9.2 g/dL (12-16); IMMATURE GRANULOCYTES 0.6 % (0-5); LYMPHOCYTES 7.2 % (15-50); MCH 27.4 pg (26.0-34.0); MCHC 31.3 g/dL (31.0-37.0); MCV 87.5 fL (80.0-100.0); MEAN PLATELET VOLUME 10.1 fL (7.4-10.4); MONOCYTES 2.5 % (2-11); NEUTROPHILS 89.4 % (40-80); PLATELET COUNT 180 10x3/uL (130-400); RBC 3.36 10x6/uL (4.00-5.40); RDW 17.3 % (11.5-14.5); WBC 6.3 10x3/uL (4.8-10.8)
[2016-12-03 04:46] LABS: ANION GAP 16.6 mmol/L (8-16); CALCIUM 8.3 mg/dL (8.5-10.1); CARBON DIOXIDE 21.5 mmol/L (21.0-32.0); MAGNESIUM - SERUM 1.9 mg/dL (1.8-2.4); PHOSPHOROUS 4.8 mg/dL (2.5-4.9); POTASSIUM - SERUM 4.1 mmol/L (3.5-5.1)
--- NOTE | 2016-12-03 12:45 | NUR ---
0700 RECEIVED PT IN BED EYES OPEN, FAMILY AT BEDSIDE. ALERT ORIENTED TO SELF WITH CONFUSION NOTED. ABLE TO FOLLOW COMMANDS. O2 AT 2L PER NC, 02 SATS 95% VSS. LUNGS CLEAR, DIMINISHED AT BASES. GENERALIZED EDEMA. BILATERAL BROKEN ANKLES, LEFT FOOT IN A BOOT.TORRES DRAINING DARK URINE TO GRAVITY. BREAKFAST OFFERED AND DTR AT BEDSIDE ATTEMPTING TO ASSIST WITH EATING. PT WITH POOR PO INTAKE. NO COMPLAINTS AT THIS TIME WILL CONT. TO MONITOR. 0900 MEDS GIVEN CRUSHED IN PUDDING, SWALLOWED AFTER SEVERAL ATTEMPTS AND PERSUASION. 1200 LUNCH OFFERED, PT ASSITED ATE ABOUT 25% OF MEAL, DTR AT BEDISDE ANGELA ANSWERED.
--- NOTE | 2016-12-03 14:27 | NUR ---
1400 BATH GIVEN, LINENS CHANGED PT WITH LARGE AMOUNT OF SOFT BROWN ODOROUS STOOL. OCCULT STOOL COLLECTED AND SAMPLE TAKEN TO LAB.
--- NOTE | 2016-12-03 15:36 | NUR ---
1520 RECEIVED ORDER TO TRANSFER PT TO THE FLOOR. ORDERS PUT IN, MEDS RECONCILLED AND MAIL TRUCK DRIVER AWARE. FAMILY AT BEDSIDE AND AWARE, AWATING BED.
--- NOTE | 2016-12-03 16:42 | NUR ---
PT JUST ARRIVED FROM THE ICU TO ROOM. PT DENIES NEEDS FAMILY AT BEDSIDE. PT FAMILY ASSISTING HER WITH DINNER.
--- NOTE | 2016-12-03 19:30 | NUR ---
ASSESSMENT COMPLETE, CONFUSED, GARBLED SPEECH NOTED, RESP UNLAB WITH O2 @ 2L NC IN USE. TELEMETRY SHOWING HR AFIB PER MONITOR. DOBUTAMINE INFUSING W/O DIFF AT 11.7 CC/HR TO LEFT ARM PICC LINE. TORRES CATH INTACT AND PATENT WITH YELLOW URINE NOTED IN BAG. ON LOVENOX, NO SCDS NOTED. LEFT FIXED BOOT NOTED IN PLACE, WITH RT FOOT/ANKLE SWELLING NOTED, UP ON PILLOW. MERIPEX DRSG NOTED TO GIGI. CDI. DIMITRY CARE GIVEN FOR STOOL INCONT EPISODE. FENG WELL. HOB UP SR UP X2, C/L IN REACH. CONTINUE TO MONITOR. FAMILY MEMBERS AT BEDSIDE FOR NIGHT.
[2016-12-04 02:01] VITALS: BP 129/50
--- NOTE | 2016-12-04 04:55 | NUR ---
PICC LINE FOUND HALF IN HALF OUT, ESCROW AGENT NOTIFIED., CHARGE NURSE NOTIFIED, IV FLUIDS PUT ON HOLD. TWO 20GA IV CATHS INSERT PER ANNE-MARIE Willoughby RN CHARGE NURSE, TO LEFT FA WITH NO R/S NOTED AT SITES. XRAY NOTIFIED OF NEED FOR CHEST XRAY, AREA TO PICC LINE CLEANED AND DRESSED PER WALLACE DOUGLAS RNAEROSOL LINE OPERATOR. HOB UP SR UP X2, C/L IN REACH. CONTINUE TO MONITOR.
[2016-12-04 05:48] VITALS: BP 120/76
[2016-12-04 06:21] LABS: BASOPHILS 0 % (0.0-2.0); EOSINOPHILS 0 % (0-7); HEMATOCRIT 29.3 % (36.0-48.0); HEMOGLOBIN 9.3 g/dL (12-16); IMMATURE GRANULOCYTES 0.6 % (0-5); MCH 27.7 pg (26.0-34.0); MCHC 31.7 g/dL (31.0-37.0); MCV 87.2 fL (80.0-100.0); MEAN PLATELET VOLUME 10.1 fL (7.4-10.4); MONOCYTES 3.3 % (2-11); NEUTROPHILS 91.1 % (40-80); RBC 3.36 10x6/uL (4.00-5.40); RDW 17.5 % (11.5-14.5)
[2016-12-04 06:28] LABS: PLATELET COUNT 231 10x3/uL (130-400); WBC 8.2 10x3/uL (4.8-10.8)
[2016-12-04 06:42] LABS: ANION GAP 19.6 mmol/L (8-16); CALCIUM 8.6 mg/dL (8.5-10.1); CARBON DIOXIDE 18.5 mmol/L (21.0-32.0); CREATININE - SERUM 3.1 mg/dL (0.6-1.3); MAGNESIUM - SERUM 2.1 mg/dL (1.8-2.4); PHOSPHOROUS 5.4 mg/dL (2.5-4.9); POTASSIUM - SERUM 4.1 mmol/L (3.5-5.1)
[2016-12-04 08:44] VITALS: BP 146/59
--- NOTE | 2016-12-04 10:06 | NUR ---
PT IS ALERT, BUT CONFUSED. NO OTHER NEEDS AT THIS TIME. WILL CONTINUE TO MONITOR. ASSESSMENT DONE PER FLOWSHEET.
[2016-12-04 13:13] VITALS: BP 117/59
[2016-12-04 17:01] VITALS: BP 128/56
--- NOTE | 2016-12-04 19:44 | NUR ---
RESUMED CARE OF PT, LYING IN BED RESPIRATIONS EVEN AND UNLABORED ON 2LPM VIA NC. 80 SR ON TELEMETRY. LEFT FOREARM INFUSING DOBUTAMINE @ 13.5ML/HR AND NS @ 10. LEFT PICC IS TAPED DOWN AND SALINE LOCKED, AWAITING EVALUATION BY IV NURSE. TORRES TO GRAVITY. FAMILY AT BEDSIDE. CALL LIGHT IN REACH. WILL CONTINUE TO MONITOR. SEE NURSE ASSESSMENT.
[2016-12-04 21:30] VITALS: BP 96/44
--- NOTE | 2016-12-04 21:54 | NUR ---
INCONTINENT EPISODE CLEANED AND LINENS CHANGED. DRESSING TO BUTTOCK C/D/I.
--- NOTE | 2016-12-04 23:46 | NUR ---
PT FOUND TO HAVE PULLED PICC LINE OUT THE REST OF WAY, HAD PULLED OUT PARTIALLY LAST NIGHT (APPROX 10 CM). HAD XRAY DONE TO VERIFY WHERE PLACEMENT WAS AND WAS IN THE SUBCLAVIAN. SITE SECURED TO KEEP FROM FURTHER PULLING AND WILL HAVE VERIFIED TO SEE IF STILL ABLE TO USE. TWO PERIPHERAL IVs STARTED TO ACCODOMATE DOBUTREX AND NS FOR IV ANTIBIOTICS LAST NIGHT. PICC LINE INTACT AT 41 CM. CONFIRMED FROM VASCULAR ACCESS NURSE'S NOTES THAT IT WAS PLACED AT 41 CM. WILL MONITOR PERIPHERAL SITES.
[2016-12-05 00:45] VITALS: BP 100/60
[2016-12-05 02:07] LABS: APPEARANCE TURBID (CLEAR); BILIRUBIN NEGATIVE (NEGATIVE); COLOR BROWN (YELLOW); GLUCOSE NEGATIVE (NEGATIVE); KETONE NEGATIVE (NEGATIVE); LEUKOCYTE ESTERASE TRACE (NEGATIVE); NITRITE NEGATIVE (NEGATIVE); PROTEIN 2+ mg/dL (NEGATIVE); SPECIFIC GRAVITY 1.015 (1.005-1.020); UROBILINOGEN NORMAL (NORMAL)
[2016-12-05 02:11] LABS: BACTERIA MANY /hpf (NONE SEEN); GRANULAR CAST RARE /lpf (NONE SEEN); HYALINE CAST RARE /lpf (NONE SEEN); MUCUS <1+ /lpf (NONE SEEN); RED CELLS - URINE >50 /hpf (0-5)
[2016-12-05 04:30] VITALS: BP 106/62
--- NOTE | 2016-12-05 04:44 | NUR ---
LAB AT BEDSIDE TO OBTAIN MORNING LAB. DIFFICULTY KEEPING OXYGEN ON. FAMILY IS OF LITTLE TO NO HELP IN THIS MATTER. HUMIDIFIER APPLIED TO O2. INSTRUCTED FAMILY AND PT SHE MUST KEEP THIS ON. CALL LIGHT IN REACH. WILL CONTINUE TO MONITOR.
--- NOTE | 2016-12-05 07:30 | NUR ---
RESTING QUIETLY EYES CLOSED RESP UNLABORED NAD NOTED
[2016-12-05 08:00] VITALS: BP 100/51
--- NOTE | 2016-12-05 09:49 | NUR ---
ASSESSMENT COMPLETED. CONFUSED, FAMILY AT BEDSIDE. TELEMERTY SHOWS PACED AT 60. 02 AT 2 L/M PER NC. TORRES CATH TO GRAVITY BAG.PT HAS A BOOT TO HER LEFT ANKLE. 2 IVS TO LEFT FA, ONE HAS DOBUTAMINE AT 3.5 AND NS AT KVO.WILL MONITOR, SR UP WITH CALL LIGHT IN REACH.
[2016-12-05] MEDS ORDERED: BUMEX2 MG PO (11:22)
[2016-12-05] MEDS ORDERED: KLOR-CON 1010 MEQ PO (11:22)
[2016-12-05] MEDS ORDERED: ASPIRIN81 MG PO (11:23)
[2016-12-05] MEDS ORDERED: CORDARONE200 MG PO (11:23)
[2016-12-05] MEDS ORDERED: LIPITOR10 MG PO (11:24)
[2016-12-05] MEDS ORDERED: ROCALTROL0.25 MCG PO (11:24)
[2016-12-05] MEDS ORDERED: AVAPRO75 MG PO (11:25)
[2016-12-05] MEDS ORDERED: MIRALAX17 GM PO (11:26)
[2016-12-05] MEDS ORDERED: SYNTHROID125 MCG PO (11:26)
[2016-12-05] MEDS ORDERED: SENNA LAXATIVE8.6 MG PO (11:27)
[2016-12-05] MEDS ORDERED: REVATIO20 MG PO (11:27)
[2016-12-05] MEDS ORDERED: CARAFATE1 G PO (11:28)
[2016-12-05] MEDS ORDERED: PROVENTIL HFA6.7 GM INH (11:29)
[2016-12-05] MEDS ORDERED: PROTONIX40 MG PO (11:29)
[2016-12-05 12:00] VITALS: BP 110/51
--- NOTE | 2016-12-05 15:15 | NUR ---
RESTING QUIETLY NAD NOTED
--- NOTE | 2016-12-05 15:25 | NUR ---
PT WENT TO CT SCAN AND WHEN SHE RETURNED TO ROOM HER HR DROPPED TO 20, RAPID REPONSE CALLED FOLLOWED BY BURKE SEAMAN. CPR STATED THEN FAILY SAID NO CPR. PT THEN STOPS BREATHING.. FAMILY NOTIFIED OF .
--- NOTE | 2016-12-05 18:09 | NUR ---
PICKED UP BY [facility]
--- NOTE | 2016-12-09 12:39 | CN ---
PATIENT NAME:NETTIE BARNARD MEDICAL RECORD: [id number] : 31 LOCATION:D. [id number].[id number] ADMIT DATE: 11/22/16 ACCOUNT: [id number] CONSULTING PHYSICIAN: ELISEO KATZ MD REFERRING PHYSICIAN: KORINA ARREDONDO MD DATE OF CONSULTATION: 11/25/2016 Pulmonary Consultation CONSULT REQUESTING PHYSICIAN: Korina Arredondo MD REASON FOR CONSULTATION: Acute hypoxic hypercapnic respiratory failure, vent management. HISTORY OF PRESENT ILLNESS: Ms. Barnard is an 81-year-old female who was admitted to the hospital with shortness of breath as well as worsening swelling of the lower extremities. Recently, she has a fall and she has a fracture of her left ankle and for that, she was seen in the [facility] ER. The patient was sent home. Last night, the patient became respiratory distress and rapid response was called and ABG showed that the patient is in respiratory acidosis. The patient was electively intubated and transferred to the ICU. Now, the patient is orally intubated and sedated. The history was taken mainly by reviewing the patient's note and talking to the nursing staff. PAST MEDICAL HISTORY: 1. Hypertension. 2. Pulmonary hypertension of severe degree of 65 3. Congestive heart failure, chronic systolic dysfunction. 4. Chronic kidney disease stage IV. 5. Hypothyroidism. 6. History of pleural effusion. 7. History of cellulitis. PAST SURGICAL HISTORY: She has AV fistula placed in the left upper extremity for dialysis, but the patient never dialyzed. ALLERGIES: There are no known drug allergies. PRESENT MEDICATIONS: The hint list on Cytodyn was reviewed. PERSONAL AND SOCIAL HISTORY: The detail is not obtainable. FAMILY HISTORY: Not obtainable. PHYSICAL EXAMINATION: GENERAL: Now, the patient is orally intubated and sedated. VITAL SIGNS: The blood pressure 106/57, pulse is 82, respirations 18, temperature is 97.7, SpO2 is 97%. She is on assist control mechanical ventilation, 100% oxygen. HEENT: Conjunctivae are pink and pale. Sclerae are nonicteric. Pupils equal, round and reactive. NECK: Supple. Very elevated JVD. CHEST: There are bilateral crackles with decreased breath sounds at the right base. HEART: Rhythm regular, grade II/ systolic murmur. CONSULT REPORT [id number] NETTIE BARNARD ABDOMEN: Soft, bowel sounds present. No hepatosplenomegaly. RECTAL: Deferred. EXTREMITIES: There is 2+ pedal edema. SKIN: Warm. CENTRAL NERVOUS SYSTEM: The patient is orally intubated and sedated. There are no obvious cranial nerve abnormality. CHEST RADIOGRAPH: ET tube is in good position. There are interstitial edema. There is small to moderate right-sided pleural effusion, possible underlying atelectasis and pneumonia. LABORATORY DATA: CBC: The WBC 9.8, hemoglobin 9.3, hematocrit 29.8. The platelet count is 130. Chemistry: Sodium 139, potassium is 5.9, BUN is 64, creatinine 2.3. ABG: The pH was 7.05, pCO2 was 92.3, the pO2 was 38. The bicarbonate was 25.8. The lactic acid was less than 0.30. IMPRESSION: 1. Acute hypoxic hypercapnic respiratory failure. 2. Respiratory acidosis secondary to #1. 3. Mental status changes secondary to hypercarbia. 4. Pulmonary edema. 5. Congestive heart failure with a chronic systolic dysfunction with EF of 40%. 6. Severe pulmonary hypertension of 65, most likely secondary to left heart failure. 7. Anemia. 8. Right-sided pleural effusion. 9. Cannot rule out pneumonia, right lower lobe. 10. Stage IV chronic kidney disease. 11. Fracture of the left ankle. RECOMMENDATION: 1. We will increase the Bumex. 2. Continue Zosyn empirically, possible pneumonia, right lower lobe, consistent with community-acquired pneumonia. 3. We will continue albuterol/ipratropium nebulizer. Follow up labs and chest radiograph get a cardiology consult. DVT and stress ulcer prevention. Dr. Arredondo, once again, thanks for involving me in the care of Ms. Barnard. The critical care time is 45 minutes TRANSINT:[id number] Voice Confirmation ID: [id number] DOCUMENT ID: [id number] ELISEO KATZ MD at 1239 CC: [facility] [place] [id number] DICTATION DATE: 11/25/16 1047 SERVICE TRANSFORMER REPAIR SUPERVISOR: 11/25/162011 DIS IN 12/05/16 [place] [id number]
== END 2016-12-05 18:10 | DRG 291 ==
LOC: D.ER 11:15 → D.MS 17:10 → D.ICU 17:10 → D.M2 17:10 → D.ICU 11-24 23:20 → D.M2 12-03 16:28
PROVIDERS: Emergency Medicine; Internal Medicine Nephrology; Internal Medicine Pulmonary Disease; ADMIT Family Medicine
PROC: 2W3TXYZ Immobilization of Left Foot using Other Device (ICD-10-PCS; 2016-11-23)
PROC: 0BH17EZ Insertion of Endotracheal Airway into Trachea, Via Natural or Artificial Opening (ICD-10-PCS; 2016-11-25)
PROC: 5A1945Z Respiratory Ventilation, 24-96 Consecutive Hours (ICD-10-PCS; 2016-11-25)
PROC: 02HV33Z Insertion of Infusion Device into Superior Vena Cava, Percutaneous Approach (ICD-10-PCS; principal; 2016-11-28)
PROC: 5A12012 Performance of Cardiac Output, Single, Manual (ICD-10-PCS; 2016-12-05)
DX: I13.0 Hypertensive heart and chronic kidney disease with heart failure and stage 1 through stage 4 chronic kidney disease, or unspecified chronic kidney disease (principal); J96.02 Acute respiratory failure with hypercapnia; J96.01 Acute respiratory failure with hypoxia; J15.0 Pneumonia due to Klebsiella pneumoniae; J15.5 Pneumonia due to Escherichia coli; J15.6 Pneumonia due to other Gram-negative bacteria; A41.9 Sepsis, unspecified organism; G93.49 Other encephalopathy; N18.4 Chronic kidney disease, stage 4 (severe); I50.22 Chronic systolic (congestive) heart failure; N17.9 Acute kidney failure, unspecified; S82.852A Displaced trimalleolar fracture of left lower leg, initial encounter for closed fracture; W19.XXXA Unspecified fall, initial encounter; E03.9 Hypothyroidism, unspecified; H91.90 Unspecified hearing loss, unspecified ear; R94.31 Abnormal electrocardiogram [ECG] [EKG]; R79.89 Other specified abnormal findings of blood chemistry; I27.2 Other secondary pulmonary hypertension; D64.9 Anemia, unspecified; I48.91 Unspecified atrial fibrillation; I42.9 Cardiomyopathy, unspecified; I08.1 Rheumatic disorders of both mitral and tricuspid valves; I25.10 Atherosclerotic heart disease of native coronary artery without angina pectoris; D50.9 Iron deficiency anemia, unspecified; L29.9 Pruritus, unspecified; E87.5 Hyperkalemia